=== PATIENT | male | born 1975 | race Caucasian/White ===

== ENCOUNTER 2020-12-26 11:24 | Emergency (ER) | payer OTHER ==
[~2020-12-26] VITALS: Ht 180.3 cm; Wt 84.8 kg
[2020-12-26 11:35] VITALS: BP 138/91
--- NOTE | 2020-12-26 12:02 | ED GI ---
General Chief Complaint: Foreign Body Stated Complaint: FOREIGN OBJECT IN RECTAL Nursing Triage Note: PT AMB TO [facility] 6 AFTER BEING BROUGHT IN BY [facility]. PT STATES ABOUT 2 HR [employer] HE INSERTED MARIJUANA INTO HIS RECTUM. STATES MARIJUANA INSIDE OF A CONDOM. Sepsis Screen: No Definite Risk Source of Information: Patient Exam Limitations: No Limitations History of Present Illness Date Seen by Provider: Dec 26, 2020 Time Seen by Provider: 12:00 Initial Comments To ER in shackles and handcuffs in [facility] custody with reports of marijuana within a condom that he has tucked up his anus. This occurred about 2 hours ago. He is unable to get it out. Timing/Duration: 1-2 Days Severity/Quality: Moderate Location: Generalized Abdomen Radiation: No Radiation Activities at Onset: None Allergies and Home Medications Allergies Coded Allergies: No Known Drug Allergies (Unverified , 12/26/20) Patient Home Medication List Home Medication List Reviewed: Yes Review of Systems Review of Systems Constitutional: see HPI EENTM: No Symptoms Reported Respiratory: No Symptoms Reported Cardiovascular: No Symptoms Reported Gastrointestinal: See HPI Genitourinary: No Symptoms Reported Musculoskeletal: no symptoms reported Skin: no symptoms reported Psychiatric/Neurological: No Symptoms Reported Endocrine: No Symptoms Reported Past Gizrake-Nmcgyd-Lkvpkg Hx Patient Social History Alcohol Use: Occasionally Uses Drug of Choice: MARIJUANA Smoking Status: Current Everyday Smoker Type Used: Cigarettes Recent Infectious Disease Expo: No Recent Hopitalizations: No Immunizations Up To Date Tetanus Booster (TDap): Unknown Seasonal Allergies Seasonal Allergies: Yes Past Medical History Surgeries: No Respiratory: No Cardiac: No Neurological: No Genitourinary: No Gastrointestinal: No Musculoskeletal: Yes Back Injury, Chronic Back Pain Endocrine: No HEENT: No Cancer: No Psychosocial: No Integumentary: No Blood Disorders: No Physical Exam Vital Signs Vital Signs - First Documented 12/26/20 11:35 Temp 36.6 Pulse 86 Resp 17 B/P (MAP) 138/91 (107) Pulse Ox 100 O2 Delivery Room Air Capillary Refill : Less Than 3 Seconds Height/Weight/BMI Height: '" Weight: lbs. oz. kg; 26.00 BMI Method: General Appearance: WD/WN, no apparent distress Respiratory: normal breath sounds, no respiratory distress, no accessory muscle use Gastrointestinal: normal bowel sounds, non tender, soft Extremities: normal range of motion, non-tender Neurologic/Psychiatric: alert, normal mood/affect, oriented x 3 Skin: normal color, warm/dry Exam Comments On digital rectal exam I am able to palpate a condom just at the tip of my finger. However I am unable to grasp it. We will have him go to the restroom and try to get this out. Progress/Results/Core Measures Results/Orders My Orders Orders - JUJU WHITMAN APRN Abdomen/[place] (12/26/20 11:52) Vital Signs/I&O 12/26/20 11:35 Temp 36.6 Pulse 86 Resp 17 B/P (MAP) 138/91 (107) Pulse Ox 100 O2 Delivery Room Air Blood Pressure Mean: 107 Departure Communication (Admissions) 1212-Patient was able to defecate the marijuana within a condom into a specimen cup. It was then placed in a evidence bag and given to [facility] officer. Impression Primary Impression: Foreign body in anus and rectum Disposition: 01 HOME, SELF-CARE Condition: Stable Departure-Patient Inst. Decision time for Depature: 12:12 Referrals: NO,LOCAL PHYSICIAN (PCP/Family) Primary Care Physician Patient Instructions: Removal of Rectal Foreign Body JUJU WHITMAN APRN Dec 26, 2020 12:02
== END 2020-12-26 12:18 | disposition home or self-care (01) ==
LOC: ER 11:27
DX: T18.5XXA Foreign body in anus and rectum, initial encounter (principal); F17.210 Nicotine dependence, cigarettes, uncomplicated
CPT/HCPCS: 99282